=== PATIENT | male | born 1940 | race Caucasian/White ===

== ENCOUNTER 2019-10-19 13:36 | Outpatient (CLI) | payer MEDICARE ==
--- NOTE | 2019-10-19 14:53 | RAD ---
Cervical spine 4 views HISTORY: Neck pain. FINDINGS: There is reversal of the normal lordotic curvature of the upper cervical spine. Prominent e ndplate irregularity at each level with some haziness and poor definition of the endplates. Minimal degenerative retrolisthesis at the C4-5 level. Disc space. Narrowing most pronounced at the C5-6 leve l. Minimal spondylolisthesis at the C6-7 level. Cervicothoracic junction is intact. Mild S shaped curvature of the upper cervicothoracic spine. No acute fracture or dislocation are apparent. Calcific ation within the carotid siphons. IMPRESSION: Prominent osseous degenerative changes with irregularity of the endplates throughout the cervical spine. No acute destruction evident. Atherosclerosis.
--- NOTE | 2019-10-19 17:12 | MRI ---
CERVICAL SPINE MRI WITHOUT CONTRAST: 10/19/19 HISTORY: Cervical radiculopathy. Neck pain radiates down to the right shoulder times many months. COMPARISON: None. FINDINGS: There is straightening of the cervical lordosis with a reversal lordosis centered at C3-C4. Overall, there is appropriate T1 marrow signal intensity of the cervical vertebra. Cervical spine vertebral b joss height is maintained. There is no fracture. The visualized brain parenchyma has appropriate signa l intensity. 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 Spondylolisthesis: C2-C3: 2.9 mm of anterolisthesis. C3-C4: 2.3 mm of retrolisthesis. C4-C5: 2.5 mm of retrolisthesis. C6-C7: 3.0 mm of anterolisthesis. C7-T1: 4.3 mm of anterolisthesis. C2-C3: Broad based disc bulge abuts the thecal sac. No significant central canal stenosis. Mild bilat eral foraminal narrowing due to uncovertebral hypertrophy. There is a right greater than left facet h ypertrophy. C3-C4: Severe loss of disc space height. Central disc protrusion markedly deforms the cervical cord. There is moderate central canal stenosis. There appears to be subtle T2 hyperintensity of the cord walker ggesting cord malacia. Mild right and moderate left foraminal narrowing due to uncovertebral hypertro phy. C4-C5: Severe loss of disc space height. There is a central-left paracentral disc herniation. There i s mass effect upon the central left aspect of the cord. Moderate cord deformity. Overall, there is mo derate central canal stenosis of the left aspect of the central spinal canal. There does appear to be some T2 hyperintensity in the cord suggesting component of cord malacia. Right neural foramen is pat ent. Moderate left foraminal narrowing. C5-C6: There is a central disc herniation that deforms the left hemicord. Mild to moderate central ca nal stenosis. There does appear to be some subtle cord hyperintensity suggesting cord malacia. Modera te to severe right foraminal narrowing due to uncovertebral and facet hypertrophy. Mild left foramina l narrowing is noted. C6-C7: Broad based disc osteophyte complex abuts the thecal sac. No significant central canal stenosi s. Foramina are patent. C7-T1: Broad based disc osteophyte complex abuts the thecal sac. Subarachnoid space effaced. At least mild central canal stenosis. Moderate right and mild to moderate left foraminal narrowing. IMPRESSION: 1. Multilevel degenerative change of the cervical spine as described above. 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 There is significant central canal s tenosis at C3-C4, C4-C5 due to prominent disc herniations as described. 2. Multilevel spondylolisthesis as described above. POS: CET
== END 2019-10-19 13:37 | disposition home or self-care (01) ==
LOC: SCSMRI 13:36
PROVIDERS: ATTEND Surgery
DX: M47.22 Other spondylosis with radiculopathy, cervical region (principal); M50.121 Cervical disc disorder at C4-C5 level with radiculopathy; I70.90 Unspecified atherosclerosis; M43.16 Spondylolisthesis, lumbar region; M48.02 Spinal stenosis, cervical region
CPT/HCPCS: 72040; 72141

== ENCOUNTER 2022-01-08 13:17 | Outpatient (CLI) | payer MEDICARE | END 2022-01-08 13:18 | disposition home or self-care (01) | LOC: TBSIIMAG 13:17 | PROVIDERS: ATTEND Surgery | DX: M54.6 Pain in thoracic spine (principal); M47.26 Other spondylosis with radiculopathy, lumbar region; M47.814 Spondylosis without myelopathy or radiculopathy, thoracic region; M51.16 Intervertebral disc disorders with radiculopathy, lumbar region; M48.061 Spinal stenosis, lumbar region without neurogenic claudication; M48.04 Spinal stenosis, thoracic region; M47.812 Spondylosis without myelopathy or radiculopathy, cervical region | CPT/HCPCS: 72072; 72120; 72146; 72148 ==

== ENCOUNTER 2022-09-08 13:08 | Outpatient (CLI) | payer MEDICARE ==
[2022-09-08 14:53] LABS: Mean Corpuscular HGB CONC 34.6 g/dL (32.0-36.0); Mean Corpuscular Volume 95.5 fl (81.2-95.1); Mean Platelet Volume 10.4 fl (7.4-10.4); Platelet Count 210 10x3/uL (150-450); RBC Distribution Width 12.7 % (11.5-14.5); Red Blood Cell (RBC) Count 4.24 10x6/uL (4.32-5.72); White Blood Cell (WBC) Count 5.2 10x3/uL (3.5-10.5)
[2022-09-08 15:14] LABS: PTT 26.1 sec (22.0-33.0); Prothrombin Time 10.7 sec (9.5-12.1)
[2022-09-08 15:25] LABS: Anion Gap 11 mmol/L (10-20); BUN (Urea Nitrogen) 15 mg/dL (8.4-25.7); Calc. Creatinine Clearance 0 mL/min (70-130); Carbon Dioxide 30 mmol/L (23-31); Chloride 104 mmol/L (98-107); Estimated GFR 87; Glucose 98 mg/dL (83-110); Potassium 4.3 mmol/L (3.5-5.1); Sodium 141 mmol/L (136-145)
== END 2022-09-08 13:09 | disposition home or self-care (01) ==
LOC: LABBT 13:08
PROVIDERS: ATTEND Surgery
DX: Z01.812 Encounter for preprocedural laboratory examination (principal)
CPT/HCPCS: 80048; 85027; 85610; 85730

== ENCOUNTER 2022-09-10 07:37 | Observation (INO) | payer MEDICARE ==
[2022-09-10] MEDS ORDERED: Levofloxacin 500 mg/D5W 100 ml Premix Bag ONE (08:20)
[2022-09-10 09:37] LABS: SARS-CoV-2 NAA Rapid Test Not Detected (NotDetected)
[2022-09-10] MEDS ORDERED: Phenylephrine 10 MG/ML VIAL ONE (10:23)
[2022-09-10] MEDS ORDERED: fentaNYL PF 100 MCG/2 ML SYRINGE ONE ×2 (10:23→13:46)
[2022-09-10] MEDS ORDERED: Norepinephrine 4 MG/4 ML VIAL ONE (10:23)
[2022-09-10] MEDS ORDERED: Vancomycin 1 GM VIAL ONE (10:26)
[2022-09-10] MEDS ORDERED: Thrombin 5000 UNITS/5 ML VIAL ONE (10:26)
[2022-09-10] MEDS ORDERED: Clindamycin/D5W 900 mg/50 ml Premix Bag ONE (10:42)
[2022-09-10] MEDS ORDERED: Ondansetron PF 4 MG/2 ML Vial ONE (10:52)
[2022-09-10] MEDS ORDERED: PROPOFOL 200 MG/20 ML VIAL ONE (10:52)
[2022-09-10] MEDS ORDERED: NEOSTIGMINE 3 MG/3 ML SYR 3 MG/3 ML SYRINGE ONE (10:52)
[2022-09-10] MEDS ORDERED: Rocuronium Bromide 10 MG/ML (10ML VIAL) ONE (10:52)
[2022-09-10] MEDS ORDERED: Ondansetron HCl/PF 4 MG/2 ML Vial IVP PRN (13:38)
[2022-09-10] MEDS ORDERED: Promethazine HCl 25 MG/ML VIAL IM PRN (13:38)
[2022-09-10] MEDS ORDERED: Promethazine HCl 25 MG/ML VIAL IVPB PRN (13:38)
[2022-09-10] MEDS ORDERED: traMADol HCl 50 MG TAB PO PRN (13:40)
[2022-09-10] MEDS ORDERED: Acetaminophen 325 MG TAB PO PRN (13:40)
[2022-09-10] MEDS ORDERED: diphenhydrAMINE 25 MG CAP PO PRN (13:40)
[2022-09-10] MEDS ORDERED: hydrALAZINE 20 MG/ML VIAL SLOW IVP PRN (13:42)
[2022-09-10] MEDS ORDERED: tiZANidine HCl 4 MG TAB PO PRN (13:42)
[2022-09-10] MEDS ORDERED: Promethazine HCl 12.5 MG in Sodium Chloride 0.9% 50 ML IVPB PRN (13:44)
[2022-09-10] MEDS ORDERED: FENTANYL 50 MCG/ML 1 ML VIAL ONE (14:09)
[2022-09-10] MEDS ORDERED: Morphine 4 MG/ML VIAL SLOW IVP PRN (14:43)
[2022-09-10 15:06] VITALS: BMI 21.8
[2022-09-10] MEDS: Sodium Chloride 0.9% 1,000 ML IV SCH (15:19)
[2022-09-10] MEDS: Acetaminophen/Codeine 30-300mg Tablet PO PRN ×2 (15:31→20:51)
[2022-09-10] MEDS: Fludrocortisone Acetate 0.1 MG TAB PO SCH ×2 (15:31→21:05)
[2022-09-10] MEDS: Clindamycin/D5W 900 MG in Premix Bag 1 BAG IVPB SCH (17:29)
[2022-09-10] MEDS: HYDROcodone/Acetaminophen 7.5/325 mg Tablet PO PRN (17:33)
[2022-09-10] MEDS: Bupropion 150 MG XL TAB PO SCH (20:58)
[2022-09-10] MEDS ORDERED: Atorvastatin Calcium 20 MG TAB PO SCH (21:00)
[2022-09-11] MEDS: HYDROcodone/Acetaminophen 7.5/325 mg Tablet PO PRN (00:16)
[2022-09-11] MEDS: Clindamycin/D5W 900 MG in Premix Bag 1 BAG IVPB SCH ×2 (02:21→09:04)
[2022-09-11] MEDS: Sodium Chloride 0.9% 1,000 ML IV SCH (03:52)
[2022-09-11] MEDS ORDERED: Levothyroxine Sodium 75 MCG TAB PO SCH (06:00)
[2022-09-11] MEDS ORDERED: Dutasteride 0.5 MG CAP PO SCH (09:00)
[2022-09-11] MEDS ORDERED: Donepezil HCl 10 MG TAB PO SCH (09:00)
[2022-09-11] MEDS ORDERED: Aripiprazole 10 MG TAB PO SCH (09:00)
[2022-09-11] MEDS ORDERED: Bupropion 150 MG XL TAB PO SCH (09:00)
[2022-09-11] MEDS: Fludrocortisone Acetate 0.1 MG TAB PO SCH (09:05)
[2022-09-11] MEDS: Bupropion 150 MG XL TAB PO SCH (09:05)
[2022-09-11] MEDS: Acetaminophen/Codeine 30-300mg Tablet PO PRN (10:20)
[2022-09-11 11:55] VITALS: BP 132/73; TEMP 97.5
== END 2022-09-11 15:31 | disposition home or self-care (01) ==
LOC: SDC 07:37 → SURG A 13:40
PROVIDERS: ADMIT Surgery; ATTEND Surgery
PROC: 01NB0ZZ Release Lumbar Nerve, Open Approach (ICD-10-PCS; principal; 2022-09-10)
PROC: 01NR0ZZ Release Sacral Nerve, Open Approach (ICD-10-PCS; 2022-09-10)
DX: M48.062 Spinal stenosis, lumbar region with neurogenic claudication (principal); M54.16 Radiculopathy, lumbar region; N40.0 Benign prostatic hyperplasia without lower urinary tract symptoms; Z79.890 Hormone replacement therapy; Z79.899 Other long term (current) drug therapy; Z88.0 Allergy status to penicillin; Z20.822 Contact with and (suspected) exposure to COVID-19
CPT/HCPCS: 63030; 63047; 63048 ×2; 96365; 96366; G0378 ×2; J3010; U0002; J1956; J2370; J2405; J2704; J3370; J3490; J7643

== ENCOUNTER 2023-02-14 13:41 | Outpatient (CLI) | payer MEDICARE | END 2023-02-14 13:42 | disposition home or self-care (01) | LOC: SCSMRI 13:41 | PROVIDERS: ATTEND Surgery | DX: M47.26 Other spondylosis with radiculopathy, lumbar region (principal); Z98.890 Other specified postprocedural states | CPT/HCPCS: 72100; 72148 ==

== ENCOUNTER 2023-04-20 11:05 | Outpatient (CLI) | payer MEDICARE | END 2023-04-20 11:06 | disposition home or self-care (01) | LOC: SCSRAD 11:05 | PROVIDERS: ATTEND Family Medicine | DX: R10.30 Lower abdominal pain, unspecified (principal); R19.5 Other fecal abnormalities | CPT/HCPCS: 74019 ==